=== PATIENT | female | born 1975 | race Caucasian/White ===

== ENCOUNTER 2023-11-18 04:02 | Day surgery (SDC) | payer OTHER ==
[2023-11-16 11:03] VITALS: BMI 30.2
[2023-11-18] MEDS ORDERED: LIDOCAINE 1%/EPI 1:100000 (20 ML MULTI DOSE VIAL) ONE ×2 (07:11→10:43)
[2023-11-18] MEDS ORDERED: INDOCYANINE GREEN 25 MG/10 ML VIAL IVPUSH ONE (07:11)
[2023-11-18] MEDS ORDERED: BUPIVACAINE HCL/PF 0.5% (5MG/ML) 10 ML VIAL ONE (07:11)
[2023-11-18] MEDS ORDERED: ROCURONIUM BROMIDE 50 MG/5 ML SYRINGE ONE (10:56)
[2023-11-18] MEDS ORDERED: PROPOFOL 20 ML ONE (10:56)
[2023-11-18] MEDS ORDERED: LIDOCAINE HCL/PF 2% SDV 5ML VIAL ONE (10:56)
[2023-11-18] MEDS ORDERED: MIDAZOLAM HCL 2 MG/2 ML SINGLE DOSE VIAL ONE (10:56)
[2023-11-18] MEDS ORDERED: oxyCODONE HCL 5 MG TABLET PO PRN ×2 (11:10→15:57)
[2023-11-18] MEDS ORDERED: ONDANSETRON 4 MG/2 ML VIAL IVPUSH PRN ×2 (11:10→15:57)
[2023-11-18] MEDS ORDERED: LACTATED RINGERS SOLUTION 1,000 ML IV SCH (11:15)
[2023-11-18] MEDS: ceFAZolin SODIUM 1 GM VIAL IVPB ONE ×2 (11:49)
[2023-11-18] MEDS: LIDOCAINE 1%/EPI 1:100000 (20 ML MULTI DOSE VIAL) IJ ONE ×3 (12:14)
[2023-11-18] MEDS ORDERED: HYDROmorphone HCl 2 MG/ML VIAL ONE (12:27)
[2023-11-18] MEDS: SILVER NITRATE 75% APPLIC STCK 1 PKT EACH TP ONE (15:46)
[2023-11-18] MEDS ORDERED: ACETAMINOPHEN 325 MG TABLET (FP) PO PRN (15:57)
[2023-11-18] MEDS: LACTATED RINGERS SOLUTION 1,000 ML IV SCH (16:51)
[2023-11-18] MEDS ORDERED: HYDROmorphone HCL CARPU-JECT 2 MG/1 ML DISP.SYRIN ONE (17:12)
[2023-11-18] MEDS: HYDROmorphone HCl 2 MG/ML VIAL IVPUSH ONE (17:16)
[2023-11-18] MEDS ORDERED: ceFAZolin SODIUM 1 GM VIAL ONE (17:21)
[2023-11-18] MEDS: CEFAZOLIN 1 GM in DEXTROSE 5%-WATER - 50 ML IVPB SCH (17:25)
[2023-11-18] MEDS: oxyCODONE HCL 5 MG TABLET PO PRN (18:54)
[2023-11-18] MEDS: IBUPROFEN 800 MG/8 ML IJ IVPB PRN (21:31)
[2023-11-19] MEDS: ONDANSETRON 4 MG/2 ML VIAL IVPUSH PRN (00:19)
[2023-11-19 02:05] VITALS: RESP 18
[2023-11-19] MEDS: CEFAZOLIN 1 GM in DEXTROSE 5%-WATER - 50 ML IVPB SCH (10:13)
[2023-11-19 10:50] LABS: HEMATOCRIT 43.7 % (32.4-45.2); HEMOGLOBIN 14.9 GM/dL (10.7-15.3); MCH 29.1 pg (25.7-33.7); MEAN CELL VOLUME 85.4 fl (80-96); MEAN PLT VOLUME 10.4 fl (7.5-11.1); PLATELET COUNT 168 10^3/uL (134-434); RBC 5.12 M/mm3 (3.60-5.2); RDW 13.1 % (11.6-15.6); WHITE BLOOD COUNT 14.2 K/mm3 (4.0-10.0)
[2023-11-19] MEDS: DOCUSATE SODIUM 100 MG CAPSULE (FP) PO PRN (11:43)
[2023-11-19] MEDS: BISACODYL 5 MG TABLET.DR (FP) PO PRN (11:43)
[2023-11-19] MEDS: SIMETHICONE 80 MG TAB.CHEW (FP) PO PRN (11:43)
[2023-11-19] MEDS: IBUPROFEN 600 MG TABLET (FP) PO PRN (13:45)
[2023-11-19 14:44] VITALS: BP 123/87; PULSE 92; TEMP 98.2
== END 2023-11-19 15:58 | disposition home or self-care (01) ==
LOC: JASU-SURG 04:02 → JASUSAT 04:02 → J8W 18:28 → JASUSAT 11-19 15:58
PROVIDERS: ATTEND Obstetrics & Gynecology Gynecologic Oncology
PROC: 8E0W7CZ Robotic Assisted Procedure of Trunk Region, Via Natural or Artificial Opening (ICD-10-PCS; 2023-11-18)
PROC: 0UT9FZZ Resection of Uterus, Via Natural or Artificial Opening With Percutaneous Endoscopic Assistance (ICD-10-PCS; principal; 2023-11-18 10:30)
PROC: 0UT7FZZ Resection of Bilateral Fallopian Tubes, Via Natural or Artificial Opening With Percutaneous Endoscopic Assistance (ICD-10-PCS; 2023-11-18 10:30)
PROC: 0UT0FZZ Resection of Right Ovary, Via Natural or Artificial Opening With Percutaneous Endoscopic Assistance (ICD-10-PCS; 2023-11-18 10:30)
DX: D25.2 Subserosal leiomyoma of uterus (principal); N83.11 Corpus luteum cyst of right ovary
CPT/HCPCS: 58552; S2900; 36415; 81025; 85027; 86850; 86900; 86901; 88309-TC; 94760